=== PATIENT | female | born 1985 | race Caucasian/White ===

== ENCOUNTER 2019-09-04 10:06 | Emergency (ER) | payer OTHER, MEDICAID ==
[~2019-09-04] VITALS: Ht 162.6 cm; Wt 72.0 kg
[2019-09-04 10:24] VITALS: BP 110/78
== END 2019-09-04 11:11 | disposition home or self-care (01) ==
LOC: ER 10:06
DX: Z03.818 Encounter for observation for suspected exposure to other biological agents ruled out (principal); Z87.2 Personal history of diseases of the skin and subcutaneous tissue
CPT/HCPCS: 99283; U0003